=== PATIENT | male | born 1985 | race Caucasian/White ===

== ENCOUNTER 2024-07-16 07:15 | Outpatient (CLI) | payer BC, MEDICAID | END 2024-07-16 23:59 | disposition home or self-care (01) | LOC: MRI 07:15 | PROVIDERS: ATTEND Specialist | DX: M19.012 Primary osteoarthritis, left shoulder (principal); M25.512 Pain in left shoulder; M25.712 Osteophyte, left shoulder; M89.312 Hypertrophy of bone, left shoulder; M87.022 Idiopathic aseptic necrosis of left humerus | CPT/HCPCS: 73221 ==